=== PATIENT | male | born 1945 | race Caucasian/White ===

== ENCOUNTER 2019-04-22 17:59 | Inpatient (IN) | payer BC ==
[~2019-04-22] VITALS: Ht 188 cm; Wt 98.6 kg
[~2019-04-22 17:59] MED LIST: CARB1TAB46 PO; DONE10TA7 PO; HEPA50002 SC; HYDR-3601 PO; OMEP40CA38 PO; OXYB5TAB10 PO; SOLI5TAB2 PO; TAMS-14 PO; VENL150C94 PO; VENL75CA89 PO
[2019-04-22] MEDS ORDERED: ONDANSETRON 4 MG INJ IV STA (18:17)
[2019-04-22] MEDS ORDERED: morphine 4 MG/ML VIAL IV STA (18:17)
[2019-04-22] MEDS ORDERED: ACETAMINOPHEN 325 MG TAB PO PRN ×2 (20:30→21:00)
[2019-04-22] MEDS ORDERED: ONDANSETRON 4 MG INJ IV PRN ×2 (20:30→21:00)
[2019-04-22] MEDS ORDERED: CEFAZOLIN 1 GM/50 ML (PMX) 50 ML IVPB SCH (21:00)
[2019-04-22] MEDS ORDERED: HYDROCODONE/APAP (5/325) TAB PO PRN (21:00)
[2019-04-22] MEDS ORDERED: NACL 0.9% 3 ML SYG IV SCH (21:00)
[2019-04-22] MEDS ORDERED: BISACODYL (EC) 5 MG TAB PO PRN (21:00)
[2019-04-22] MEDS ORDERED: DIPHTH/TET/ACEL PERTUSS (ADULT) 0.5 ML VIAL IM* ONE (21:00)
[2019-04-22] MEDS ORDERED: FENTAnyl 50 MCG/ML VIAL IV ONE (21:00)
[2019-04-22] MEDS ORDERED: DOCUSATE SODIUM 100 MG CAP PO PRN (21:00)
[2019-04-22] MEDS: SOD CHLORIDE 0.9% 1,000 ML IV SCH (22:52)
[2019-04-22] MEDS: morphine 2 MG INJ IV PRN (22:52)
[2019-04-22 23:29] VITALS: Ht 188 cm; Wt 98.6 kg
[2019-04-23 01:10] VITALS: BP 160/59; PULSE 69; RESP 18
[2019-04-23 02:14] VITALS: BP 142/68; PULSE 65; RESP 18
[2019-04-23] MEDS: morphine 2 MG INJ IV PRN (03:41)
[2019-04-23] MEDS: PANTOPRAZOLE (EC) 40 MG TAB PO SCH (06:00)
[2019-04-23] MEDS ORDERED: NON-FORMULARY/PATIENT OWN MED (Omeprazole* 40 MG) PO SCH (06:00)
[2019-04-23 08:09] VITALS: BP 127/61; PULSE 67; RESP 18
[2019-04-23] MEDS ORDERED: NON-FORMULARY/PATIENT OWN MED (Carbidopa/Levodopa (Carbidopa-Levo 25-100 Mg Odt) 1 TAB) PO SCH ×2 (09:00)
[2019-04-23] MEDS ORDERED: CARBIDOPA/LEVODOPA (25/100) TAB PO SCH (09:00)
[2019-04-23] MEDS: DONEPEZIL 10 MG TAB PO SCH (09:46)
[2019-04-23] MEDS: VENLAFAXINE (XR) 75 MG CAP PO SCH ×2 (09:46→20:28)
[2019-04-23] MEDS: CARBIDOPA/LEVODOPA (25/100) TAB PO SCH ×5 (11:47→22:01)
[2019-04-23] MEDS: SOD CHLORIDE 0.9% 1,000 ML IV SCH (12:10)
[2019-04-23 15:18] VITALS: BP 128/68; PULSE 67; RESP 20
[2019-04-23 20:11] VITALS: BP 144/66; PULSE 68; RESP 18
[2019-04-23] MEDS: OXYBUTYNIN 5 MG TAB PO SCH (20:28)
[2019-04-24] VITALS (23 sets, daily range): BP systolic 127–164; BP diastolic 62–83; PULSE 71–88; RESP 11–21
[2019-04-24] MEDS: SOD CHLORIDE 0.9% 1,000 ML IV SCH ×3 (03:21→17:18)
[2019-04-24] MEDS: PANTOPRAZOLE (EC) 40 MG TAB PO SCH (04:08)
[2019-04-24] MEDS ORDERED: SEVOFLURANE 15 MIN ONE (07:00)
[2019-04-24] MEDS: SOLIFENACIN 5 MG TAB PO SCH (09:00)
[2019-04-24] MEDS: HEPARIN 5,000 UNIT/1 ML VIAL SC SCH ×2 (09:00→21:57)
[2019-04-24] MEDS: DONEPEZIL 10 MG TAB PO SCH (09:00)
[2019-04-24] MEDS: VENLAFAXINE (XR) 75 MG CAP PO SCH ×2 (09:00→21:00)
[2019-04-24] MEDS: DOCUSATE SODIUM 100 MG CAP PO SCH ×2 (09:00→21:00)
[2019-04-24] MEDS ORDERED: PROPOFOL 20 ML ONE (11:38)
[2019-04-24] MEDS ORDERED: SUCCINYLCHOLINE CHLORIDE 100 MG/5 ML SYG IV ONE (11:38)
[2019-04-24] MEDS ORDERED: LIDOCAINE 2% (SDV) 5 ML INJ ONE (11:38)
[2019-04-24] MEDS ORDERED: EPHEDrine 25 MG/5 ML SYG ONE (12:23)
[2019-04-24] MEDS ORDERED: CEFAZOLIN 1 GM INJ ONE (12:23)
[2019-04-24] MEDS ORDERED: ROCURONIUM 50 MG INJ ONE ×2 (12:24→12:37)
[2019-04-24] MEDS ORDERED: DEXAMETHASONE 4 MG/ML 5 ML INJ ONE (12:42)
[2019-04-24] MEDS ORDERED: ONDANSETRON 4 MG INJ ONE (12:42)
[2019-04-24] MEDS ORDERED: FAMOTIDINE 20 MG INJ ONE (12:43)
[2019-04-24] MEDS ORDERED: GLYCOPYRROLATE 0.4 MG INJ ONE (14:03)
[2019-04-24] MEDS ORDERED: NEOSTIGMINE 3 MG/3 ML SYRINGE ONE (14:03)
[2019-04-24] MEDS ORDERED: POLYMYXIN/BACITRACIN 1L IRRIG ONE (14:14)
[2019-04-24] MEDS ORDERED: LABETALOL HCL 20MG INJ ONE (14:23)
[2019-04-24] MEDS ORDERED: MEPERIDINE 25 MG INJ IV PRN (14:30)
[2019-04-24] MEDS ORDERED: FENTAnyl 50 MCG/ML VIAL IV PRN (14:30)
[2019-04-24] MEDS ORDERED: ONDANSETRON 4 MG INJ IV PRN (14:30)
[2019-04-24] MEDS ORDERED: HYDROmorphONE 1 MG/5 ML IV SYRINGE IV PRN ×3 (14:30)
[2019-04-24] MEDS ORDERED: NACL 0.9% 3 ML SYG IV SCH (15:00)
[2019-04-24] MEDS ORDERED: HYDROmorphONE 1 MG/ML SYG IV PRN (15:00)
[2019-04-24] MEDS ORDERED: oxyCODONE 5 MG TAB PO PRN ×2 (15:00)
[2019-04-24] MEDS ORDERED: NALOXONE (0.4 MG/ML) INJ IV PRN (15:00)
[2019-04-24] MEDS: CARBIDOPA/LEVODOPA (25/100) TAB PO SCH ×2 (16:37→21:00)
[2019-04-24] MEDS: CEFAZOLIN 2 GM/50 ML (PMX) 50 ML IVPB SCH (16:44)
[2019-04-24] MEDS: OXYBUTYNIN 5 MG TAB PO SCH (21:00)
[2019-04-25] MEDS: CEFAZOLIN 2 GM/50 ML (PMX) 50 ML IVPB SCH ×2 (00:16→06:49)
[2019-04-25 01:01] VITALS: BP 146/69; PULSE 78; RESP 18
[2019-04-25] MEDS: SOD CHLORIDE 0.9% 1,000 ML IV SCH ×4 (03:12→22:34)
[2019-04-25] MEDS: PANTOPRAZOLE (EC) 40 MG TAB PO SCH (06:00)
[2019-04-25 08:14] VITALS: BP 149/70; PULSE 72; RESP 18
[2019-04-25] MEDS: CARBIDOPA/LEVODOPA (25/100) TAB PO SCH ×4 (08:40→20:35)
[2019-04-25] MEDS: DONEPEZIL 10 MG TAB PO SCH (08:40)
[2019-04-25] MEDS: DOCUSATE SODIUM 100 MG CAP PO SCH ×2 (08:40→20:35)
[2019-04-25] MEDS: SOLIFENACIN 5 MG TAB PO SCH (08:41)
[2019-04-25] MEDS: VENLAFAXINE (XR) 75 MG CAP PO SCH ×2 (08:41→20:35)
[2019-04-25] MEDS: ENOXAPARIN 40 MG/0.4 ML SYG SC SCH (08:46)
[2019-04-25 14:50] VITALS: BP 120/60; PULSE 76; RESP 17
[2019-04-25 19:17] VITALS: BP 119/59; PULSE 78; RESP 18
[2019-04-25] MEDS: OXYBUTYNIN 5 MG TAB PO SCH (20:35)
[2019-04-26 01:32] VITALS: BP 129/63; PULSE 83; RESP 18
[2019-04-26] MEDS: PANTOPRAZOLE (EC) 40 MG TAB PO SCH (06:05)
[2019-04-26 07:50] VITALS: BP 139/61; PULSE 66; RESP 18
[2019-04-26] MEDS: ENOXAPARIN 40 MG/0.4 ML SYG SC SCH (09:00)
[2019-04-26] MEDS: DONEPEZIL 10 MG TAB PO SCH (09:23)
[2019-04-26] MEDS: VENLAFAXINE (XR) 75 MG CAP PO SCH (09:23)
[2019-04-26] MEDS: DOCUSATE SODIUM 100 MG CAP PO SCH (09:23)
[2019-04-26] MEDS: CARBIDOPA/LEVODOPA (25/100) TAB PO SCH ×3 (09:23→17:02)
[2019-04-26] MEDS: SOLIFENACIN 5 MG TAB PO SCH (09:24)
[2019-04-26] MEDS: SOD CHLORIDE 0.9% 1,000 ML IV SCH (10:21)
[2019-04-26] MEDS ORDERED: SODIUM PHOSPHATE 15 MMOL in SOD CHLORIDE 0.9% 250 ML IVPB ONE (12:00)
[2019-04-26] MEDS ORDERED: TAMSULOSIN (SR) 0.4 MG CAP PO SCH (21:00)
== END 2019-04-26 19:20 | DRG 470 ==
LOC: E/R 17:59 → 2NE 20:30
PROVIDERS: ADMIT Family Medicine; ATTEND Family Medicine
PROC: 0SRS01Z Replacement of Left Hip Joint, Femoral Surface with Metal Synthetic Substitute, Open Approach (ICD-10-PCS; principal; 2019-04-24 09:30)
DX: S72.012A Unspecified intracapsular fracture of left femur, initial encounter for closed fracture (principal); N17.9 Acute kidney failure, unspecified; W10.9XXA Fall (on) (from) unspecified stairs and steps, initial encounter; G20 Parkinson's disease; F32.9 Major depressive disorder, single episode, unspecified; K21.9 Gastro-esophageal reflux disease without esophagitis; Z85.46 Personal history of malignant neoplasm of prostate; F02.80 Dementia in other diseases classified elsewhere, unspecified severity, without behavioral disturbance, psychotic disturbance, mood disturbance, and anxiety; N39.41 Urge incontinence; M84.421D Pathological fracture, right humerus, subsequent encounter for fracture with routine healing
CPT/HCPCS: 70450; 71045; 72170; 73500; 73510; 76775; 80048; 80053; 80061; 82550; 82553; 83036; 83735; 84100; 84443; 84484; 85025; 85610; 85730; 86850; 86900; 86901; 86920; 88305; 88311; 90715; 93005; 93306; 93880; 97110; 97116; 97162; 97530; J0690; J1100; J1644; J1650; J2270; J2405; J2710; J3010; J7030; J7050